=== PATIENT | male | born 1985 | race Caucasian/White ===

== ENCOUNTER 2018-06-11 22:23 | Emergency (ER) | payer SELFPAY ==
[~2018-06-11] VITALS: Ht 160 cm; Wt 93.0 kg
[2018-06-11 22:38] VITALS: Ht 160 cm; Wt 93.0 kg
[2018-06-12] MEDS ORDERED: IBUP-1542 PO (01:27)
--- NOTE | 2018-06-12 01:29 | ERD ---
ER Documentation Chief Complaint Chief Complaint RADAITING CP TO LEFT ARM X 2 HRS AGO, DESCRIBED PRESSURE HPI This is a 32-year-old male who is rating chest pain to his left arm 2 hours ago. It started in his neck and then moved down to his shoulder and his arm. Denies fevers chills nausea vomiting shortness of breath. He said it was a pinching- like sensation. Denies any other current complaints. No history of cardiac dis ease. No family history of cardiac disease. Denies drinking or smoking. No history of diabetes. No history of hypertension. ROS All systems reviewed and are negative except as per history of present illness. Medications Home Meds Active Scripts Ibuprofen* (Motrin*) 600 Mg Tab, 600 MG PO Q6, #30 TAB Prov:KELVIN WITT 06/12/18 Allergies Allergies: Coded Allergies: No Known Allergy (Unverified , 06/12/18) PMhx/Soc Medical and Surgical Hx: pt denies Medical Hx, pt denies Surgical Hx Hx Alcohol Use: Yes Hx Substance Use: No Hx Tobacco Use: No Smoking Status: Never smoker Physical Exam Vitals Vital Signs Date Temp Pulse Resp B/P (MAP) Pulse Ox O2 O2 Flow FiO2 Time Delivery Rate 06/12/18 77 18 126/93 97 Room Air 00:29 (104) 06/12/18 Nasal 2 00:11 Cannula 06/11/18 98.3 75 16 161/91 98 22:38 (114) Physical Exam Const: No acute distress Head: Atraumatic Eyes: Normal Conjunctiva ENT: Normal External Ears, Nose and Mouth. Neck: Full range of motion. No meningismus. Resp: Clear to auscultation bilaterally Cardio: Regular rate and rhythm, no murmurs Abd: Soft, non tender, non distended. Normal bowel sounds Skin: No petechiae or rashes Back: No midline or flank tenderness Ext: No cyanosis, or edema Neur: Awake and alert Psych: Normal Mood and Affect Result Diagram: 06/12/181606/12/1816 Results 24 hrs Laboratory Tests Test 06/12/18 00:17 White Blood Count 8.7 10^3/ul Red Blood Count 4.74 10^6/ul Hemoglobin 14.7 g/dl Hematocrit 41.9 % Mean Corpuscular Volume 88.4 fl Mean Corpuscular Hemoglobin 31.0 pg Mean Corpuscular Hemoglobin Concent 35.1 g/dl Red Cell Distribution Width 11.9 % Platelet Count 301 10^3/UL Mean Platelet Volume 8.5 fl Immature Granulocytes % 0.500 % Neutrophils % 60.4 % Lymphocytes % 27.9 % Monocytes % 8.5 % Eosinophils % 2.0 % Basophils % 0.7 % Nucleated Red Blood Cells % 0.0 /100WBC Immature Granulocytes # 0.040 10^3/ul Neutrophils # 5.3 10^3/ul Lymphocytes # 2.4 10^3/ul Monocytes # 0.7 10^3/ul Eosinophils # 0.2 10^3/ul Basophils # 0.1 10^3/ul Nucleated Red Blood Cells # 0.0 10^3/ul Sodium Level 142 mmol/L Potassium Level 4.2 mmol/L Chloride Level 102 mmol/L Carbon Dioxide Level 23 mmol/L Anion Gap 17 Blood Urea Nitrogen 21 mg/dl Creatinine 0.81 mg/dl Est Glomerular Filtrat Rate mL/min > 60 mL/min Glucose Level 97 mg/dl Calcium Level 9.8 mg/dl Total Bilirubin 0.3 mg/dl Direct Bilirubin 0.00 mg/dl Indirect Bilirubin 0.3 mg/dl Aspartate Amino Transf (AST/SGOT) 38 IU/L Alanine Aminotransferase (ALT/SGPT) 45 IU/L Alkaline Phosphatase 71 IU/L Troponin I < 0.012 ng/ml Total Protein 8.7 g/dl Albumin 5.0 g/dl Globulin 3.70 g/dl Albumin/Globulin Ratio 1.35 Lipase 59 U/L Procedures/MDM EKG: Rate/Rhythm: [Normal Sinus Rhythm] QRS, ST, T-waves: [No changes consistent w/ acute ischemia] Impression: [No evidence of ischemia or arrhythmia] Chest X-ray 1V Interpreted by me: Soft Tissue: No acute abnormalities Bones: No acute abnormalities Mediastinum/Cardiac Silhouette/Lungs: [No acute abnormalities] Patient's thoracic symptoms have stabilized while in the department and are stable for outpatient follow up. Exam and work up not consistent w/ ischemia, arrhythmia, PE or dissection. Departure Diagnosis: Primary Impression: Chest pain Chest pain type: unspecified Qualified Codes: R07.9 - Chest pain, unspecified Condition: Stable Patient Instructions: Chest Pain, Uncertain Cause KELVIN WITT Jun 12, 2018 01:29
[2018-06-12 01:41] VITALS: BP 122/89; PULSE 77; RESP 18
== END 2018-06-12 01:41 | disposition home or self-care (01) ==
LOC: E/R 22:23
DX: R07.9 Chest pain, unspecified (principal)
CPT/HCPCS: 36415; 71045; 80053; 83690; 84484; 85025; 93005